=== PATIENT | female | born 1995 | race Caucasian/White ===

== ENCOUNTER → 2018-05-02 | Outpatient (CLI) | payer MEDICAID | END | disposition home or self-care (01) | LOC: U/S 14:02 | DX: O26.849 Uterine size-date discrepancy, unspecified trimester (principal); Z3A.00 Weeks of gestation of pregnancy not specified | CPT/HCPCS: 76801 ==

== ENCOUNTER 2018-10-10 14:47 | Inpatient (IN) | payer MEDICAID ==
[2018-10-10 16:58] LABS: ADD UMIC YES; UR AMORPHOUS CRYSTAL MODERATE /HPF (NONE SEEN); UR ASCORBIC ACID NEGATIVE (NEGATIVE); UR BACTERIA MANY /HPF (NONE SEEN); UR BILIRUBIN (Dip) NEGATIVE (NEGATIVE); UR BLOOD (Dip) NEGATIVE (NEGATIVE); UR CLARITY CLOUDY (CLEAR); UR COLOR RED (YELLOW); UR GLUCOSE (Dip) 1+ mg/dL (NEGATIVE); UR KETONES (Dip) NEGATIVE (NEGATIVE); UR LEUKOCYTE ESTERASE (Dip) 2+ Leu/ul (NEGATIVE); UR NITRITE (Dip) NEGATIVE (NEGATIVE); UR RBC 4 /HPF (0-5); UR SQUAMOUS EPITHELIAL CELL MODERATE /HPF (FEW); UR TOTAL PROTEIN (Dip) NEGATIVE (NEGATIVE); UR UROBILINOGEN (Dip) NEGATIVE (NEGATIVE); UR WBC 8 /HPF (0-5)
[2018-10-10] MEDS: LACTATED RINGER'S 1,000 ML IV (17:06)
[2018-10-10] MEDS: MAGNESIUM SULFATE 4 GM/100 ML 100 ML IV (17:08)
[2018-10-10] MEDS: MAGNESIUM SULFATE 20 GM/500 ML 500 ML IV (17:50)
[2018-10-10 17:52] LABS: ALANINE AMINOTRANSFERASE 15 IU/L (13-69); ALBUMIN/GLOBULIN RATIO 1.33; ALKALINE PHOSPHATASE 100 IU/L (42-121); ANION GAP 10 (5-13); ASPARTATE AMINO TRANSFERASE 21 IU/L (15-46); BILIRUBIN,INDIRECT 0.2 mg/dl (0-1.1); BILIRUBIN,TOTAL 0.2 mg/dl (0.2-1.3); BLOOD UREA NITROGEN 4 mg/dl (7-20); CALCIUM 9.1 mg/dl (8.4-10.2); CARBON DIOXIDE 22 mmol/L (21-31); CHLORIDE 103 mmol/L (97-110); CREATININE 0.34 mg/dl (0.44-1.00); Estimated GFR > 60 mL/min (>60); GLUCOSE 85 mg/dl (70-220); POTASSIUM 3.6 mmol/L (3.5-5.1); SODIUM 135 mmol/L (135-144)
[2018-10-10] MEDS ORDERED: ONDANSETRON 4 MG INJ IV (18:00)
[2018-10-10] MEDS: BETAMET NA PHOS/AC(6 MG/ML) 2 ML INJ SYG IM (18:00)
[2018-10-10] MEDS: PROGESTERONE 100 MG CAP VAG (21:36)
[2018-10-11 01:40] LABS: MAGNESIUM 5.1 mg/dl (1.7-2.5)
[2018-10-11] MEDS: LACTATED RINGER'S 1,000 ML IV ×3 (03:12→16:47)
[2018-10-11] MEDS: MAGNESIUM SULFATE 20 GM/500 ML 500 ML IV ×2 (03:15→12:12)
[2018-10-11 06:40] LABS: MAGNESIUM 5.1 mg/dl (1.7-2.5)
[2018-10-11] MEDS: ACETAMINOPHEN 325 MG TAB PO (10:02)
[2018-10-11] MEDS: BETAMET NA PHOS/AC(6 MG/ML) 2 ML INJ SYG IM (16:48)
[2018-10-11 19:24] LABS: MAGNESIUM 5.4 mg/dl (1.7-2.5)
[2018-10-11] MEDS: NIFEdipine 10 MG CAP PO (19:44)
[2018-10-11] MEDS: PROGESTERONE 100 MG CAP VAG (21:33)
[2018-10-12] MEDS: NIFEdipine 10 MG CAP PO ×3 (02:07→12:15)
[2018-10-12] MEDS: LACTATED RINGER'S 1,000 ML IV (05:03)
== END 2018-10-12 16:15 | disposition home or self-care (01) | DRG 832 ==
LOC: OBT 14:47 → PP1 10-11 09:27 → L-D 14:47 → OBT 15:50 → L-D 15:50
DX: O26.873 Cervical shortening, third trimester (principal); O47.03 False labor before 37 completed weeks of gestation, third trimester; Z3A.30 30 weeks gestation of pregnancy
CPT/HCPCS: 80053; 81001; 83735; 87086

== ENCOUNTER 2018-10-22 11:53 | Outpatient (CLI) | payer MEDICAID | END 2018-10-22 14:35 | disposition home or self-care (01) | LOC: OBT 11:53 → L-D 11:53 → OBT 14:35 | DX: O26.873 Cervical shortening, third trimester (principal); Z3A.32 32 weeks gestation of pregnancy | CPT/HCPCS: 76817; 76818 ==

== ENCOUNTER 2018-12-06 23:53 | Inpatient (IN) | payer MEDICAID ==
[2018-12-07] MEDS ORDERED: LACTATED RINGER'S 1,000 ML IV (00:50)
[2018-12-07] MEDS ORDERED: CARBOPROST 250 MCG INJ IM ×2 (01:00→21:30)
[2018-12-07] MEDS ORDERED: IBUPROFEN 600 MG TAB PO (01:00)
[2018-12-07] MEDS ORDERED: BUTORPHANOL 1 MG INJ IV (01:00)
[2018-12-07] MEDS ORDERED: LIDOCAINE 1% (MPF) 30 ML INJ INJ (01:00)
[2018-12-07] MEDS ORDERED: METHYLERGONOVINE 0.2 MG INJ IM ×2 (01:00→21:30)
[2018-12-07] MEDS ORDERED: MISOPROSTOL 200 MCG TAB PR ×2 (01:00→21:30)
[2018-12-07] MEDS ORDERED: OXYTOCIN 30 UNITS/LR 500 ML IV ×2 (01:00→21:30)
[2018-12-07 01:09] LABS: ADD UMIC NO; UR ASCORBIC ACID NEGATIVE (NEGATIVE); UR BILIRUBIN (Dip) NEGATIVE (NEGATIVE); UR BLOOD (Dip) NEGATIVE (NEGATIVE); UR CLARITY CLEAR (CLEAR); UR COLOR YELLOW (YELLOW); UR GLUCOSE (Dip) 2+ mg/dL (NEGATIVE); UR KETONES (Dip) NEGATIVE (NEGATIVE); UR LEUKOCYTE ESTERASE (Dip) NEGATIVE Leu/ul (NEGATIVE); UR NITRITE (Dip) NEGATIVE (NEGATIVE); UR SPECIFIC GRAVITY (Dip) 1.012 (1.003-1.030); UR TOTAL PROTEIN (Dip) NEGATIVE (NEGATIVE); UR UROBILINOGEN (Dip) 1+ mg/dL (NEGATIVE)
[2018-12-07] MEDS: LACTATED RINGER'S 1,000 ML IV ×4 (01:11→12:25)
[2018-12-07] MEDS: BUTORPHANOL 2 MG INJ IV (01:27)
[2018-12-07 01:33] LABS: ADD MAN DIFF? NO
[2018-12-07 01:41] LABS: BASOPHIL # 0.1 10^3/ul (0.0-0.1); BASOPHILS % 0.4 % (0.0-2.0); EOSINOPHILS # 0.1 10^3/ul (0.0-0.5); EOSINOPHILS % 0.7 % (0.0-7.0); HEMATOCRIT 36.9 % (37.0-47.0); HEMOGLOBIN 12.1 g/dl (12.0-16.0); LYMPHOCYTES # 2.4 10^3/ul (0.8-2.9); LYMPHOCYTES % 15.4 % (15.0-51.0); MEAN CORPUSCULAR HEMOGLOBIN 26.5 pg (29.0-33.0); MEAN CORPUSCULAR HGB CONC 32.8 g/dl (32.0-37.0); MEAN CORPUSCULAR VOLUME 80.9 fl (82.0-101.0); MEAN PLATELET VOLUME 10.5 fl (7.4-10.4); MONOCYTE # 1.2 10^3/ul (0.3-0.9); MONOCYTES % 7.8 % (0.0-11.0); NEUTROPHIL # 11.4 10^3/ul (1.6-7.5); PLATELET COUNT 310 10^3/UL (140-415); RED BLOOD COUNT 4.56 10^6/ul (4.20-5.40); RED CELL DISTRIBUTION WIDTH 14.3 % (11.5-14.5)
[2018-12-07 01:41] LABS: WHITE BLOOD COUNT 15.4 10^3/ul (4.8-10.8)
[2018-12-07 01:56] LABS: INR 0.91; PROTIME 12.4 Sec (11.9-14.9)
[2018-12-07 01:57] LABS: PARTIAL THROMBOPLASTIN TIME 32.3 Sec (23.0-35.0)
[2018-12-07 01:58] LABS: ALANINE AMINOTRANSFERASE 11 IU/L (13-69); ALBUMIN 3.8 g/dl (3.3-4.9); ALBUMIN/GLOBULIN RATIO 1.15; ALKALINE PHOSPHATASE 230 IU/L (42-121); ANION GAP 9 (5-13); ASPARTATE AMINO TRANSFERASE 18 IU/L (15-46); BILIRUBIN,INDIRECT 0.4 mg/dl (0-1.1); BILIRUBIN,TOTAL 0.4 mg/dl (0.2-1.3); BLOOD UREA NITROGEN 7 mg/dl (7-20); CALCIUM 9.1 mg/dl (8.4-10.2); CARBON DIOXIDE 22 mmol/L (21-31); CHLORIDE 107 mmol/L (97-110); CREATININE 0.38 mg/dl (0.44-1.00); Estimated GFR > 60 mL/min (>60); GLUCOSE 104 mg/dl (70-220); POTASSIUM 3.8 mmol/L (3.5-5.1); SODIUM 138 mmol/L (135-144); TOTAL PROTEIN 7.1 g/dl (6.1-8.1)
[2018-12-07] MEDS ORDERED: DIPHENHYDRAMINE 50 MG INJ IV (02:00)
[2018-12-07] MEDS ORDERED: ONDANSETRON 4 MG INJ IV (02:00)
[2018-12-07] MEDS ORDERED: EPHEDrine SULFATE 50 MG/5 ML SYG IV (02:00)
[2018-12-07] MEDS ORDERED: NALOXONE (0.4 MG/ML) INJ IV (02:00)
[2018-12-07 02:01] LABS: URIC ACID 1.9 mg/dl (3.1-7.9)
[2018-12-07] MEDS ORDERED: FENTAnyl 2MCG/ML-ROPIV 0.2% 100 ML (02:01)
[2018-12-07 02:57] LABS: HEPATITIS B SURFACE ANTIGEN NEGATIVE (NEGATIVE)
[2018-12-07] MEDS: FENTAnyl 2MCG/ML-ROPIV 0.2% 100 ML BAG EPI (13:56)
[2018-12-07 15:05] LABS: RAPID PLASMA REAGIN NONREACTIVE (NR)
[2018-12-07] MEDS: MINERAL OIL LIGHT 10 ML VIAL TOP (17:02)
[2018-12-07] MEDS: OXYTOCIN 30 UNITS/LR 500 ML IV ×2 (17:03→17:06)
[2018-12-07] MEDS: KETOROLAC 30 MG INJ IV (17:25)
[2018-12-07] MEDS ORDERED: LANOLIN HPA 1 PKT TOP (21:30)
[2018-12-07] MEDS ORDERED: HYDROCODONE/APAP (5/325) TAB PO ×2 (21:30)
[2018-12-07] MEDS ORDERED: ZOLPIDEM 5 MG TAB PO (21:30)
[2018-12-07] MEDS: MAGNESIUM HYDROXIDE 30ML CUP PO (21:31)
[2018-12-07] MEDS: WITCH HAZEL/GLYCERIN PAD PR (21:31)
[2018-12-07] MEDS: BENZOCAINE 20% 56 ML SPRAY TOP (21:32)
[2018-12-07] MEDS: LACTATED RINGER'S 1,000 ML IV* (21:35)
[2018-12-08] MEDS: CEPHALEXIN 500 MG CAP PO ×5 (00:06→23:33)
[2018-12-08] MEDS: IBUPROFEN 600 MG TAB PO ×5 (00:06→23:32)
[2018-12-08] MEDS: LACTATED RINGER'S 1,000 ML IV* ×3 (05:06→21:06)
[2018-12-08 08:23] LABS: ADD MAN DIFF? NO
[2018-12-08 08:33] LABS: BASOPHIL # 0.1 10^3/ul (0.0-0.1); BASOPHILS % 0.4 % (0.0-2.0); EOSINOPHILS # 0.2 10^3/ul (0.0-0.5); EOSINOPHILS % 0.9 % (0.0-7.0); HEMATOCRIT 31.2 % (37.0-47.0); HEMOGLOBIN 10.2 g/dl (12.0-16.0); LYMPHOCYTES # 2.6 10^3/ul (0.8-2.9); LYMPHOCYTES % 15.3 % (15.0-51.0); MEAN CORPUSCULAR HEMOGLOBIN 26.7 pg (29.0-33.0); MEAN CORPUSCULAR HGB CONC 32.7 g/dl (32.0-37.0); MEAN CORPUSCULAR VOLUME 81.7 fl (82.0-101.0); MEAN PLATELET VOLUME 10.4 fl (7.4-10.4); MONOCYTE # 1.2 10^3/ul (0.3-0.9); MONOCYTES % 7.3 % (0.0-11.0); NEUTROPHIL # 12.6 10^3/ul (1.6-7.5); NEUTROPHILS % 74.4 % (39.0-77.0); PLATELET COUNT 290 10^3/UL (140-415); RED BLOOD COUNT 3.82 10^6/ul (4.20-5.40); RED CELL DISTRIBUTION WIDTH 14.6 % (11.5-14.5)
[2018-12-08] MEDS: DIBUCAINE 1% 30 GM OINT TOP (08:56)
[2018-12-08] MEDS: SENNA/DOCUSATE NA (8.6MG/50MG) TAB PO ×2 (08:56→21:26)
[2018-12-08] MEDS: WITCH HAZEL/GLYCERIN PAD PR (08:56)
[2018-12-08] MEDS: MAGNESIUM HYDROXIDE 30ML CUP PO ×2 (08:56→21:25)
[2018-12-09] MEDS: IBUPROFEN 600 MG TAB PO ×2 (06:01→11:47)
[2018-12-09] MEDS: CEPHALEXIN 500 MG CAP PO ×2 (06:02→11:47)
[2018-12-09] MEDS: LACTATED RINGER'S 1,000 ML IV* ×2 (07:30→13:06)
[2018-12-09] MEDS: DIPHTH/TET/ACEL PERTUSS (ADULT) 0.5 ML VIAL IM* (07:43)
[2018-12-09] MEDS: MEASLES,MUMPS,RUBELLA VACCINE INJ SC* (07:44)
[2018-12-09] MEDS: SENNA/DOCUSATE NA (8.6MG/50MG) TAB PO (08:29)
[2018-12-09 08:30] LABS: ADD MAN DIFF? NO
[2018-12-09 08:37] LABS: BASOPHIL # 0.1 10^3/ul (0.0-0.1); BASOPHILS % 0.5 % (0.0-2.0); EOSINOPHILS # 0.2 10^3/ul (0.0-0.5); EOSINOPHILS % 1.6 % (0.0-7.0); HEMATOCRIT 27.1 % (37.0-47.0); HEMOGLOBIN 8.8 g/dl (12.0-16.0); LYMPHOCYTES # 2.7 10^3/ul (0.8-2.9); LYMPHOCYTES % 20.8 % (15.0-51.0); MEAN CORPUSCULAR HEMOGLOBIN 26.7 pg (29.0-33.0); MEAN CORPUSCULAR HGB CONC 32.5 g/dl (32.0-37.0); MEAN CORPUSCULAR VOLUME 82.4 fl (82.0-101.0); MEAN PLATELET VOLUME 10.7 fl (7.4-10.4); MONOCYTE # 0.7 10^3/ul (0.3-0.9); MONOCYTES % 5.6 % (0.0-11.0); NEUTROPHIL # 8.8 10^3/ul (1.6-7.5); PLATELET COUNT 303 10^3/UL (140-415); RED BLOOD COUNT 3.29 10^6/ul (4.20-5.40); RED CELL DISTRIBUTION WIDTH 14.7 % (11.5-14.5)
[2018-12-09 08:37] LABS: WHITE BLOOD COUNT 12.9 10^3/ul (4.8-10.8)
[2018-12-09] MEDS: VARICELLA VACCINE LIVE/PF 1,350 UNIT/0.5 ML ML SC* (09:00)
[2018-12-09] MEDS: MAGNESIUM HYDROXIDE 30ML CUP PO (09:00)
== END 2018-12-09 17:45 | disposition home or self-care (01) | DRG 807 ==
LOC: OBT 23:53 → L-D 23:53 → OBT 12-07 00:40 → L-D 12-07 00:40 → PP1 12-07 20:49
PROC: 0W8NXZZ Division of Female Perineum, External Approach (ICD-10-PCS; principal; 2018-12-07)
PROC: 10E0XZZ Delivery of Products of Conception, External Approach (ICD-10-PCS; 2018-12-07)
PROC: 0UQGXZZ Repair Vagina, External Approach (ICD-10-PCS; 2018-12-07)
DX: O71.4 Obstetric high vaginal laceration alone (principal); Z37.0 Single live birth; Z3A.38 38 weeks gestation of pregnancy
CPT/HCPCS: 80053; 81003; 84560; 85025; 85610; 85730; 86592; 86850; 86900; 86901; 87086; 87340; 90716

== ENCOUNTER 2019-02-02 11:40 | Emergency (ER) | payer MEDICAID ==
[2019-02-02] MEDS: SOD CHLORIDE 0.9% 1,000 ML IV (12:58)
[2019-02-02] MEDS: ONDANSETRON 4 MG INJ IV (12:59)
[2019-02-02 13:03] LABS: ADD MAN DIFF? NO
[2019-02-02] MEDS: KETOROLAC 30 MG INJ IV (13:08)
[2019-02-02 13:18] LABS: BASOPHIL # 0.1 10^3/ul (0.0-0.1); BASOPHILS % 0.5 % (0.0-2.0); EOSINOPHILS # 0.1 10^3/ul (0.0-0.5); HEMATOCRIT 42.8 % (37.0-47.0); HEMOGLOBIN 13.6 g/dl (12.0-16.0); LYMPHOCYTES % 16.3 % (15.0-51.0); MEAN CORPUSCULAR HEMOGLOBIN 25.6 pg (29.0-33.0); MEAN CORPUSCULAR HGB CONC 31.8 g/dl (32.0-37.0); MEAN CORPUSCULAR VOLUME 80.6 fl (82.0-101.0); MEAN PLATELET VOLUME 9.9 fl (7.4-10.4); MONOCYTE # 0.6 10^3/ul (0.3-0.9); MONOCYTES % 4.9 % (0.0-11.0); NEUTROPHIL # 9.2 10^3/ul (1.6-7.5); NEUTROPHILS % 76.4 % (39.0-77.0); PLATELET COUNT 347 10^3/UL (140-415); RED BLOOD COUNT 5.31 10^6/ul (4.20-5.40); RED CELL DISTRIBUTION WIDTH 15.3 % (11.5-14.5)
[2019-02-02 13:18] LABS: WHITE BLOOD COUNT 12.1 10^3/ul (4.8-10.8)
[2019-02-02 13:29] LABS: ADD UMIC NO; UR ASCORBIC ACID NEGATIVE (NEGATIVE); UR BILIRUBIN (Dip) NEGATIVE (NEGATIVE); UR BLOOD (Dip) NEGATIVE (NEGATIVE); UR CLARITY SLIGHTLY CLOUDY (CLEAR); UR COLOR YELLOW (YELLOW); UR GLUCOSE (Dip) NEGATIVE (NEGATIVE); UR KETONES (Dip) NEGATIVE (NEGATIVE); UR LEUKOCYTE ESTERASE (Dip) NEGATIVE Leu/ul (NEGATIVE); UR MUCUS FEW /HPF (NONE SEEN); UR NITRITE (Dip) NEGATIVE (NEGATIVE); UR RBC 1 /HPF (0-5); UR SPECIFIC GRAVITY (Dip) 1.023 (1.003-1.030); UR SQUAMOUS EPITHELIAL CELL FEW /HPF (FEW); UR TOTAL PROTEIN (Dip) NEGATIVE (NEGATIVE); UR UROBILINOGEN (Dip) NEGATIVE (NEGATIVE); UR WBC 2 /HPF (0-5)
[2019-02-02 13:39] LABS: ALANINE AMINOTRANSFERASE 145 IU/L (13-69); ALBUMIN 4.8 g/dl (3.3-4.9); ALBUMIN/GLOBULIN RATIO 1.65; ALKALINE PHOSPHATASE 73 IU/L (42-121); ANION GAP 11 (5-13); ASPARTATE AMINO TRANSFERASE 148 IU/L (15-46); BILIRUBIN,INDIRECT 0.7 mg/dl (0-1.1); BILIRUBIN,TOTAL 0.7 mg/dl (0.2-1.3); BLOOD UREA NITROGEN 15 mg/dl (7-20); CALCIUM 9.5 mg/dl (8.4-10.2); CARBON DIOXIDE 26 mmol/L (21-31); CHLORIDE 104 mmol/L (97-110); Estimated GFR > 60 mL/min (>60); GLUCOSE 100 mg/dl (70-220); LIPASE 97 U/L (23-300); POTASSIUM 4.1 mmol/L (3.5-5.1); SODIUM 141 mmol/L (135-144); TOTAL PROTEIN 7.7 g/dl (6.1-8.1)
== END 2019-02-02 15:29 | disposition home or self-care (01) ==
LOC: FTE 11:40
DX: K76.0 Fatty (change of) liver, not elsewhere classified (principal); R11.10 Vomiting, unspecified; Z90.49 Acquired absence of other specified parts of digestive tract
CPT/HCPCS: 36415; 71045; 76705; 80053; 81001; 81003; 81025; 83690; 85025; 96374; 96375; 99285-25